=== PATIENT | female | born 1985 | race Hispanic/Latino ===

== ENCOUNTER 2021-02-09 14:42 | Emergency (ER) | payer SELFPAY ==
[2021-02-09] MEDS ORDERED: IBUPROFEN 800 MG TAB PO ONE (16:10)
[2021-02-09] MEDS ORDERED: oxyCODONE /ACETAMINOPHEN 5-325MG TAB PO ONE (16:10)
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
[2021-02-09 17:09] LABS: BUN/Creatinine Ratio 12; Blood Urea Nitrogen 12 mg/dL (7-17); Calcium 8.7 mg/dL (8.4-10.2); Hemolysis Index 6
[2021-02-09 17:40] VITALS: BP 147/96
--- NOTE | 2021-02-11 17:49 | Electrocardiograph Report ---
[facility] Test Date: 2021-02-09 Test Time: 15:10:56 Pat Name: GHISLAINE VARGAS Department: Room: Gender: F Orthopaedic Doctor: ED : 1985 Requested By: KANDY HERMAN Order Number: [id number] Reading MD: Aretha Jacobsen Measurements Intervals [place] Rate: 73 P: 22 OR: 135 QRS: 57 QRSD: 88 T: 47 QT: 407 QTc: 448 Interpretive Statements Sinus rhythm No previous ECG available for comparison Electronically Signed On 02-11-2021 17:48:46 EDT by Aretha Jacobsen
== END 2021-02-09 17:40 | disposition home or self-care (01) ==
LOC: ED 14:42
DX: M54.12 Radiculopathy, cervical region (principal); I16.0 Hypertensive urgency; I10 Essential (primary) hypertension; G43.909 Migraine, unspecified, not intractable, without status migrainosus; F17.200 Nicotine dependence, unspecified, uncomplicated; F12.90 Cannabis use, unspecified, uncomplicated; Z98.51 Tubal ligation status; Z98.890 Other specified postprocedural states; Z79.899 Other long term (current) drug therapy
CPT/HCPCS: 36415; 80048; 84484; 93005; 99284

== ENCOUNTER 2021-12-02 19:31 | Emergency (ER) | payer SELFPAY ==
[2021-12-02] MEDS ORDERED: CLINDAMYCIN 150 MG/ML VIAL 6 ML IM STA (23:13)
--- NOTE | 2021-12-02 23:19 | Emergency Department Report ---
ED General Adult HPI - General Chief complaint: Extremity Problem,Nontraumatic Stated complaint: SWOLLEN KNOT ON BREAT /CHILLS/FEVER Time Seen by Provider: 12/02/21 22:58 Source: patient Mode of arrival: Ambulatory Limitations: No Limitations - History of Present Illness Initial comments: [age]-year-old female with a BMI presents emerged department complaining of pain to her right breast with some redness and swelling tenderness upon palpation of unknown etiology she is under the suspicion she may have been bitten by an insect to the area and is requiring treatment. Reports no fever, chills, sweats. No nausea, no vomiting, no nipple discharge. Reports no hemoptysis, hematemesis and hematochezia. -: Gradual Consistency: constant Improves with: none Worsens with: movement Associated Symptoms: denies: chest pain, cough, diaphoresis, loss of appetite, malaise, shortness of breath, syncope, weakness - Related Data Previous Rx's Medication Instructions Recorded Last Taken Type Amoxicillin 500 mg PO TID #30 tablet 10/04/14 Unknown Rx Butalb/Acetamin/Caff 50-325-40 1 each PO Q4H PRN #20 tablet 10/04/14 Unknown Rx [Fioricet] hydroCHLOROthiazide 25 mg PO DAILY #30 tablet 10/04/14 Unknown Rx [Hydrochlorothiazide] Cyclobenzaprine [Flexeril] 10 mg PO TID PRN #10 tablet 01/21/20 Unknown Rx Ibuprofen [Motrin 800 MG tab] 800 mg PO Q8HR PRN #20 tablet 01/21/20 Unknown Rx Valsartan 80 mg PO DAILY 90 Days #90 tablet 02/09/21 Unknown Rx Clindamycin [Clindamycin CAP] 150 mg PO Q8HR #21 capsule 12/02/21 Unknown Rx Ketorolac [Toradol] 10 mg PO Q6H PRN #14 12/02/21 Unknown Rx Allergies Allergy/AdvReac Type Severity Reaction Status Date / Time No Known Allergies Allergy Verified 12/02/21 20:28 ED Review of Systems ROS: Stated complaint: SWOLLEN KNOT ON BREAT /CHILLS/FEVER Other details as noted in HPI Comment: All other systems reviewed and negative ED Past Medical Hx - Past Medical History Previous Medical History?: Yes Hx Hypertension: Yes Hx Headaches / Migraines: Yes - Surgical History Past Surgical History?: No Additional Surgical History: tubal ligation, Esure - Social History Smoking Status: Never Smoker Substance Use Type: None - Medications Home Medications: Home Medications Medication Instructions Recorded Confirmed Last Taken Type Amoxicillin 500 mg PO TID #30 tablet 10/04/14 Unknown Rx Butalb/Acetamin/Caff 50-325-40 1 each PO Q4H PRN #20 tablet 10/04/14 Unknown Rx [Fioricet] hydroCHLOROthiazide 25 mg PO DAILY #30 tablet 10/04/14 Unknown Rx [Hydrochlorothiazide] Cyclobenzaprine [Flexeril] 10 mg PO TID PRN #10 tablet 01/21/20 Unknown Rx Ibuprofen [Motrin 800 MG tab] 800 mg PO Q8HR PRN #20 tablet 01/21/20 Unknown Rx Valsartan 80 mg PO DAILY 90 Days #90 tablet 02/09/21 Unknown Rx Clindamycin [Clindamycin CAP] 150 mg PO Q8HR #21 capsule 12/02/21 Unknown Rx Ketorolac [Toradol] 10 mg PO Q6H PRN #14 12/02/21 Unknown Rx ED Physical Exam - General Limitations: No Limitations General appearance: alert, in no apparent distress - Head Head exam: Present: atraumatic, normocephalic - Eye Eye exam: Present: normal appearance, PERRL, EOMI Pupils: Present: normal accommodation - ENT ENT exam: Present: normal orophraynx, mucous membranes moist, TM's normal bilaterally - Neck Neck exam: Present: normal inspection, full ROM - Respiratory Respiratory exam: Present: normal lung sounds bilaterally. Absent: respiratory distress, wheezes, rales, accessory muscle use, decreased breath sounds - Cardiovascular Cardiovascular Exam: Present: regular rate, normal rhythm. Absent: systolic murmur, diastolic murmur, rubs, gallop - GI/Abdominal GI/Abdominal exam: Present: soft, normal bowel sounds. Absent: distended, tenderness, hyperactive bowel sounds, hypoactive bowel sounds, organomegaly - Extremities Exam Extremities exam: Present: normal inspection, full ROM, normal capillary refill - Back Exam Back exam: Present: normal inspection. Absent: CVA tenderness (R), CVA tenderness (L) - Neurological Exam Neurological exam: Present: alert, oriented X3, CN II-XII intact - Psychiatric Psychiatric exam: Present: normal affect, normal mood - Skin Skin exam: Present: warm, dry, intact, normal color, erythema. Absent: rash - Expanded Skin Exam Expanded Description of rash: Present: erythematous, other (No lymphadenopathy) 1 - Redness circular cellulitis with the area of induration noted. No lymphangitis present. Tenderness to palpation. ED Course Vital Signs 12/02/21 20:23 Temperature 99.0 F Pulse Rate 105 H Respiratory 18 Rate Blood Pressure 161/113 [Left] O2 Sat by Pulse 98 Oximetry Critical care attestation.: If time is entered above; I have spent that time in minutes in the direct care of this critically ill patient, excluding procedure time. ED Disposition Clinical Impression: Cellulitis of right breast Disposition: HOME / SELF CARE / HOMELESS Is pt being admited?: No Does the pt Need Aspirin: No Condition: Stable Instructions: Cellulitis, Adult Prescriptions: Clindamycin [Clindamycin CAP] 150 mg PO Q8HR #21 capsule Ketorolac [Toradol] 10 mg PO Q6H PRN #14 PRN Reason: Pain Referrals: PRIMARY CARE, [Primary Care Provider] - 3-5 Days [facility] [Provider Group] - 3-5 Days
[2021-12-02] MEDS ORDERED: KETOROLAC 60 MG/2 ML INJ IM STA (23:29)
[2021-12-02] MEDS ORDERED: HYDROcodone/ACETAMINOPHEN 5-325 MG TAB PO STA (23:29)
[2021-12-03 00:28] VITALS: BP 153/102
== END 2021-12-03 00:28 | disposition home or self-care (01) ==
LOC: ED 19:31
DX: N61.0 Mastitis without abscess (principal); I10 Essential (primary) hypertension; Z98.51 Tubal ligation status; Z79.899 Other long term (current) drug therapy
CPT/HCPCS: 96372; 99282; J1885